=== PATIENT | female | born 1985 | race Caucasian/White ===

== ENCOUNTER 2016-11-12 00:56 | Emergency (ER) | payer BC ==
--- NOTE | 2016-11-12 01:02 | PDOC ---
History of Present Illness - General Chief Complaint: Pain, Acute Stated Complaint: ABDOMINAL PAIN Time Seen by Provider: 11/12/16 01:01 - History of Present Illness Initial Comments: 11/12/16 01:26 This 31-year-old woman with no significant past medical history presents with generalized abdominal pain for the last few hours. Patient states when she was working earlier this evening, she began to have some mild generalized abdominal discomfort. Pain worsened throughout the evening and patient was unable to sleep. Pain is worse with movement and she made note of increased pain when car she was riding in to the hospital encountered bumps in the road. She denies vomiting although she is mildly nauseated. She last ate earlier this evening without vomiting. She had one episode of loose stool this morning but a normal bowel movement since then. No blood/mucus in either stool. No fever or chills. LMP 10/20/16. Most recent menstrual period was normal in flow/duration/pain. Patient's menstrual period in August was particularly painful with heavy flow. Patient has a history of intermittent severe dysmenorrhea. She has had recent increasing clear discharge but no cloudy/foul-smelling discharge. history of ovarian cyst rupture in the past. 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 Although patient has history of anaphylactoid reaction to ibuprofen(throat closing), she tolerates naproxen without difficulty Past History - Past Medical History Allergies/Adverse Reactions: Allergies Allergy/AdvReac Type Severity Reaction Status Date / Time amoxicillin [Amoxicillin] Allergy Severe throat Verified 12/04/14 02:05 swelling and hives cefadroxil hydrate Allergy Severe throat Verified 12/04/14 02:05 [From Duricef] swelling and hives clarithromycin [From Biaxin] Allergy Severe throat Verified 12/04/14 02:05 swelling and hives Fish Containing Products Allergy Severe throat Verified 12/04/14 02:05 swelling and hives ibuprofen [From Motrin] Allergy Severe throat Verified 12/04/14 02:05 swelling Penicillins Allergy Severe throat Verified 12/04/14 02:05 swelling and hives Home Medications: Ambulatory Orders Naproxen Sodium [Aleve] 220 mg PO PRN PRN 11/12/16 Anemia: No Asthma: No Cancer: No Cardiac Disorders: Yes (MURMUR; HX PALPITATIONS WHEN ) Diabetes: No HTN: (DURING ) Hypercholesterolemia: No Seizures: No Thyroid Disease: Yes (HX HYPOTHYROID FROM AGE 15; NOW WNL) - Psycho/Social/Smoking Cessation Hx Anxiety: Yes (NOT ON MEDS) Suicidal Ideation: No Smoking Status: No Smoking History: Former smoker Have you smoked in the past 12 months: No Number of Cigarettes Smoked Daily: 0 If you are a former smoker, when did you quit?: 4 YRS AGO Hx Alcohol Use: No Drug/Substance Use Hx: No Substance Use Type: None Hx Substance Use Treatment: No *Physical Exam - Physical Exam Comments: GENERAL: Morbidly obese adult female, awake, alert, and fully oriented, in no acute distress. Vital signs as noted. HEAD: Normal with no signs of trauma. EYES: Pupils equal, round and reactive to light, extraocular movements intact, sclera anicteric, conjunctiva clear with no pallor. ENT: moist mucous membranes. Ears normal, nares patent, oropharynx clear without exudates. NECK: Normal range of motion, supple without lymphadenopathy, JVD, or masses. LUNGS: Breath sounds equal, clear to auscultation bilaterally. No wheeze/ crackles. HEART: Regular rate and rhythm, normal S1 and S2 without murmur or rub. ABDOMEN: Normal bowel sounds; soft, bilateral lower quadrant tenderness with rebound tenderness present; No palpable masses. No hepatosplenomegaly. EXTREMITIES: Normal range of motion, no edema. No clubbing or cyanosis. No cords, erythema, or tenderness. NEUROLOGICAL: Cranial nerves II through XII grossly intact. Normal speech, normal gait. PSYCH: Normal mood, normal affect. SKIN: Warm, Dry, normal turgor, no rashes or lesions noted. ED Treatment Course - LABORATORY CBC & Chemistry Diagram: 11/12/16 01:25 11/12/16 01:25 Medical Decision Making - Medical Decision Making Because of the patient's lower abdominal rebound tenderness and persistent pain , abdominal/pelvic CT performed to evaluate for acute intra-abdominal pathology. Patient received 2 L of IV normal saline during the time she was in the emergency room. CT, as interpreted by Imaging cotton buyer, revealed moderate amount of hemorrhagic fluid collected in patient's pelvis. Appendix was visualized and appear to be normal. No other abnormality seen. Since patient has history of ruptured ovarian cyst, and has a strong family history of ovarian cysts, presentation most consistent with ruptured ovarian cyst. Results discussed with the patient. Although she has persistent discomfort, it has not increased in severity. Patient does not want to have any pain medications at this time. She states that she will take Tylenol or Aleve at home. Patient will be discharged with instructions to return if she has more severe pain or has vomiting/fever. Patient will follow-up with her instrument mechanics supervisor within the next 4-5 days. *DC/Admit/Observation/Transfer Diagnosis at time of Disposition: Ruptured ovarian cyst - Discharge Dispostion Disposition: HOME Condition at time of disposition: Stable - Referrals Referrals: Rome Mclean MD [Primary Care Provider] - - Patient Instructions Printed Discharge Instructions: Ovarian Cyst Additional Instructions: Aleve/Tylenol as needed for pain followup with your instrument mechanics supervisor within the next 4-5 days return to ER if you have severe pain or develop fever/vomiting
[2016-11-12 01:09] VITALS: TEMP 98.4; BMI 47.8
[2016-11-12] MEDS ORDERED: SODIUM CHLORIDE 1,000 ML IV STA ×2 (01:19→05:07)
[2016-11-12 03:02] LABS: BASOPHIL 0.6 % (0-2.0); EOSINOPHIL 1.5 % (0-4.5); MCH 27.9 pg (25.7-33.7); MCHC 33.4 g/dl (32.0-36.0); MEAN CELL VOLUME 83.6 fl (80-96); MEAN PLT VOLUME 7.8 fl (7.5-11.1); NEUTROPHILS 68.4 % (42.8-82.8); PLATELET COUNT 292 K/MM3 (134-434); RDW 14.6 % (11.6-15.6); WHITE BLOOD COUNT 11.7 K/mm3 (4.0-10.0)
[2016-11-12 03:17] LABS: URINE APPEARANCE CLEAR; URINE BILIRUBIN NEGATIVE (NEGATIVE); URINE COLOR YELLOW; URINE GLUCOSE (UA) NEGATIVE (NEGATIVE); URINE KETONE NEGATIVE (NEGATIVE)
[2016-11-12 03:18] LABS: URINE BLOOD NEGATIVE (NEGATIVE); URINE LEUK ESTERASE NEGATIVE (NEGATIVE); URINE NITRITE NEGATIVE (NEGATIVE); URINE PROTEIN NEGATIVE (NEGATIVE); URINE UROBILINOGEN NORMAL (0.2-1.0)
[2016-11-12 03:23] LABS: ALBUMIN 3.7 g/dl (3.4-5.0); ANION GAP 11 (8-16); BILIRUBIN,TOTAL 0.4 mg/dL (0.2-1.0); CALCIUM 8.7 mg/dL (8.5-10.1); CO2 24 mmol/L (21-32); CREATININE 0.8 mg/dL (0.55-1.02); GLUCOSE,RANDOM 120 mg/dL (74-106); SGOT/AST 13 U/L (15-37); SGPT/ALT 20 U/L (12-78); TOT PROT 7.3 g/dl (6.4-8.2)
[2016-11-12 03:24] LABS: ALK PHOS 73 U/L (45-117)
[2016-11-12 03:36] VITALS: BP 110/75; PULSE 98
== END 2016-11-12 05:41 | disposition home or self-care (01) ==
LOC: FER 00:56
PROC: 3E0337Z Introduction of Electrolytic and Water Balance Substance into Peripheral Vein, Percutaneous Approach (ICD-10-PCS; principal; 2016-11-12)
DX: N83.299 Other ovarian cyst, unspecified side (principal); Z87.891 Personal history of nicotine dependence; E03.9 Hypothyroidism, unspecified
CPT/HCPCS: 36415; 74177-TC; 80053; 81003; 84703; 85025; 99283-25